=== PATIENT | female | born 1955 | race Two or more races ===

== ENCOUNTER 2023-07-14 11:15 | Inpatient (IN) | payer OTHER ==
[~2023-07-14] VITALS: Ht 154.9 cm; Wt 71.2 kg
[2023-07-14] MEDS ORDERED: CANDESARTAN-HC1 EAC1 PO (14:53)
[2023-07-14] MEDS ORDERED: AMLODIP PO (14:53)
[2023-07-14] MEDS ORDERED: VAZALORE81 MG PO (14:54)
[2023-07-14] MEDS ORDERED: ATORVAST PO (14:54)
[2023-07-15 10:04] LABS: COL EPI 160 SECONDS (82-175)
[2023-07-20] MEDS ORDERED: OPTIMAL D31250 MCG (09:15)
[2023-07-20] MEDS ORDERED: ATORVASTATIN CA20 MG (09:15)
[2023-07-20] MEDS ORDERED: NORVASC2.5 MG (09:15)
[2023-07-20 10:48] LABS: ABG PH 7.332 (7.35-7.45); ABG PO2 165.6 mmHg (80-100); ABG pCO2 48.9 mmHg (35-45); BASE EXCESS -1.1 mmol/l; BICARBONATE 25.4 mmol/l (23-25); SaO2 99.3 %; Tco2 26.9 mmol/l; allen test SATISFACTORY; o2 40 %; puncture site RADIAL LEFT
[2023-07-20 12:08] LABS: HEMATOCRIT 40.5 % (36.0-45.00); MEAN CELL VOLUME 91.6 fL (80.00-100.00); MEAN CORPUSCULAR HEMOGLOBIN 29.5 pg (27.00-32.0); MEAN CORPUSCULAR HGB CONC 32.2 g/dl (32.0-36.0); RED BLOOD COUNT 4.43 M/uL (4.00-6.00); RED CELL DISTRIBUTION WIDTH 14.1 % (11.5-14.5)
[2023-07-20 12:10] LABS: PLATELET COUNT 121 K/uL (150-450)
[2023-07-21 07:20] LABS: ABG PH 7.442 (7.35-7.45); ABG PO2 107.2 mmHg (80-100); ABG pCO2 45.4 mmHg (35-45); BASE EXCESS 5.3 mmol/l; BICARBONATE 30.3 mmol/l (23-25); SaO2 98.4 %; Tco2 31.7 mmol/l
[2023-07-21 07:21] LABS: allen test SATISFACTORY; o2 28 %; puncture site RADIAL LEFT
[2023-07-21 07:29] LABS: HEMATOCRIT 37.5 % (36.0-45.00); MEAN CELL VOLUME 89.9 fL (80.00-100.00); MEAN CORPUSCULAR HEMOGLOBIN 31.1 pg (27.00-32.0); MEAN CORPUSCULAR HGB CONC 34.6 g/dl (32.0-36.0); RED BLOOD COUNT 4.17 M/uL (4.00-6.00); RED CELL DISTRIBUTION WIDTH 14.1 % (11.5-14.5)
[2023-07-21 07:42] LABS: PLATELET COUNT 105 K/uL (150-450)
[2023-07-21 08:04] LABS: ALBUMIN 3.2 gm/dL (3.4-5.0); CALCIUM 8.7 mg/dL (8.5-10.1); CREATININE SERUM 0.6 mg/dL (0.55-1.02); GFR 99.71; MAGNESIUM 2.1 mg/dL (1.8-2.4); PHOSPHOROUS 2.9 mg/dL (2.5-4.9); POTASSIUM 4.33 mEq/L (3.5-5.1)
[2023-07-22 07:40] LABS: HEMOGLOBIN 11.7 g/dL (12.0-15.00); MEAN CELL VOLUME 91.3 fL (80.00-100.00); MEAN CORPUSCULAR HEMOGLOBIN 29.8 pg (27.00-32.0); MEAN CORPUSCULAR HGB CONC 32.6 g/dl (32.0-36.0); RED BLOOD COUNT 3.94 M/uL (4.00-6.00); RED CELL DISTRIBUTION WIDTH 13.7 % (11.5-14.5)
[2023-07-22 08:12] LABS: CALCIUM 8.2 mg/dL (8.5-10.1); CREATININE SERUM 0.54 mg/dL (0.55-1.02); GFR 112.61; PHOSPHOROUS 2.4 mg/dL (2.5-4.9); POTASSIUM 3.72 mEq/L (3.5-5.1)
[2023-07-22 10:42] LABS: PLATELET COUNT 97 K/uL (150-450)
[2023-07-23 09:09] LABS: CALCIUM 8.2 mg/dL (8.5-10.1); CREATININE SERUM 0.47 mg/dL (0.55-1.02); GFR 132.17; MAGNESIUM 1.9 mg/dL (1.8-2.4); POTASSIUM 3.67 mEq/L (3.5-5.1); T4 TOTAL 9.4 UG/DL (4.8-13.9); TSH 0.56 uIU/mL (0.358-3.74)
[2023-07-26 08:10] LABS: HEMATOCRIT 32.3 % (36.0-45.00); HEMOGLOBIN 11.3 g/dL (12.0-15.00); MEAN CELL VOLUME 89.4 fL (80.00-100.00); MEAN CORPUSCULAR HEMOGLOBIN 31.2 pg (27.00-32.0); MEAN CORPUSCULAR HGB CONC 34.9 g/dl (32.0-36.0); RED BLOOD COUNT 3.61 M/uL (4.00-6.00); RED CELL DISTRIBUTION WIDTH 13.8 % (11.5-14.5)
[2023-07-26 08:21] LABS: PLATELET COUNT 121 K/uL (150-450)
[2023-07-26 08:38] LABS: ALBUMIN 2.7 gm/dL (3.4-5.0); BILIRUBIN TOTAL 0.48 mg/dL (0.3-1.2); CALCIUM 8.6 mg/dL (8.5-10.1); CREATININE SERUM 0.53 mg/dL (0.55-1.02); GFR 115.06; POTASSIUM 3.94 mEq/L (3.5-5.1); TOTAL PROTEIN 5.7 gm/dL (6.4-8.2)
== END 2023-07-27 13:21 | disposition home or self-care (01) | DRG 330 ==
LOC: O/R 07-20 05:10 → SURH 07-20 05:10 → SURG 07-20 07:00 → SURH 07-20 10:41 → SURG 07-20 11:15 → SURH 07-27 13:21
PROVIDERS: Internal Medicine; Internal Medicine Geriatric Medicine; ADMIT Colon & Rectal Surgery; ATTEND Colon & Rectal Surgery
PROC: 0DBP4ZZ Excision of Rectum, Percutaneous Endoscopic Approach (ICD-10-PCS; 2023-07-20)
PROC: 0TQB4ZZ Repair Bladder, Percutaneous Endoscopic Approach (ICD-10-PCS; 2023-07-20)
PROC: 0UQG4ZZ Repair Vagina, Percutaneous Endoscopic Approach (ICD-10-PCS; 2023-07-20)
PROC: 0DTN4ZZ Resection of Sigmoid Colon, Percutaneous Endoscopic Approach (ICD-10-PCS; principal; 2023-07-20 07:00)
DX: K57.32 Diverticulitis of large intestine without perforation or abscess without bleeding (principal); K92.1 Melena; N82.3 Fistula of vagina to large intestine; N99.72 Accidental puncture and laceration of a genitourinary system organ or structure during other procedure; N73.6 Female pelvic peritoneal adhesions (postinfective); D69.6 Thrombocytopenia, unspecified; I11.9 Hypertensive heart disease without heart failure

== ENCOUNTER 2023-08-03 21:14 | Inpatient (IN) | payer OTHER ==
[~2023-08-03] VITALS: Ht 154.9 cm; Wt 69.4 kg
[~2023-08-03 21:14] MED LIST: AMLODIP PO; ATORVAST PO; ATORVASTATIN CA20 MG; CANDESARTAN-HC1 EAC1 PO; NORVASC2.5 MG; OPTIMAL D31250 MCG; VAZALORE81 MG PO
--- NOTE | 2023-08-03 21:22 | NUR ---
PACIENTE ALERTA Y ORIENTADA X 3. REFIERE EL AUG 17 FUE OPERADA PARA REMOVER PARTE DEL INTESTINO Y REFIERE TENER EN AREA DE LA CIRUJIA NGUYEN CELLULITIS, REFIERE TENER EL AREA KYUNG, CALIENTE AL TACTO Y SUPURANDO DESDE EL MAGO DE GHADA, REFIERE MUCHO DOLOR Y FIEBRE EL MAGO DE HOY. FUE OPERADA POR DR Malena ALVARADO.
--- NOTE | 2023-08-03 22:21 | NUR ---
SE ORIENTA PTE SOBRE TX A SEGUIR, EL CUAL REFIERE ENTENDER. SE COLECTAN MUESTRAS Y SE CANALIZA PTE UTILIZANDO MEDIDAS ASEPTICAS. SE ADM. MEDICAMENTOS RANDAL ORDEN MEDICA BAJO MEDIDAS ASEPTICAS. SE HACE ENTREGA DE ENVASE PARA MUESTRA DE UA PEND. PTE MANEJADO POR JAN CHAVEZ
[2023-08-03 22:26] LABS: HEMATOCRIT 32.1 % (36.0-45.00); MEAN CELL VOLUME 89.3 fL (80.00-100.00); MEAN CORPUSCULAR HEMOGLOBIN 30.6 pg (27.00-32.0); MEAN CORPUSCULAR HGB CONC 34.3 g/dl (32.0-36.0); PLATELET COUNT 257 K/uL (150-450); RED BLOOD COUNT 3.59 M/uL (4.00-6.00); RED CELL DISTRIBUTION WIDTH 13.1 % (11.5-14.5)
[2023-08-03 22:41] LABS: CALCIUM 8.7 mg/dL (8.5-10.1); CREATININE SERUM 0.59 mg/dL (0.55-1.02); GFR 101.67; POTASSIUM 3.69 mEq/L (3.5-5.1)
[2023-08-03 23:15] LABS: PH,URINE 6.5 (5.0-8.0); URINE APPEARANCE Clear; URINE BILIRRUBIN Negative (NEGATIVE); URINE BLOOD Small; URINE COLOR Yellow; URINE GLUCOSE Negative (NEGATIVE); URINE LEUKOCYTE Negative; URINE NITRATE Negative; URINE PROTEIN Negative (NEGATIVE); URINE UROBILINOGEN 0.2 E.U./dl
[2023-08-03 23:20] LABS: URINE RBC 2.2 uL (0.0-20.8)
[2023-08-04 01:37] LABS: INR 1.02; PARTIAL THROMBOPLASTIN TIME 29.9 SECONDS (22.0-34.0); PROTHROMBIN TIME 10.7 SECONDS (9.0-11.5)
[2023-08-04] MEDS ORDERED: AMIODARONE HCL200 MG (09:53)
[2023-08-05 06:15] LABS: HEMATOCRIT 35.6 % (36.0-45.00); HEMOGLOBIN 11.7 g/dL (12.0-15.00); MEAN CELL VOLUME 90.7 fL (80.00-100.00); MEAN CORPUSCULAR HEMOGLOBIN 29.7 pg (27.00-32.0); MEAN CORPUSCULAR HGB CONC 32.7 g/dl (32.0-36.0); PLATELET COUNT 313 K/uL (150-450); RED BLOOD COUNT 3.93 M/uL (4.00-6.00); RED CELL DISTRIBUTION WIDTH 13.2 % (11.5-14.5)
[2023-08-05 06:41] LABS: ALBUMIN 2.7 gm/dL (3.4-5.0); BILIRUBIN TOTAL 0.59 mg/dL (0.3-1.2); CREATININE SERUM 0.61 mg/dL (0.55-1.02); GFR 97.83; GLOBULINA 3.8 G/DL (2.4-3.5); MAGNESIUM 2.3 mg/dL (1.8-2.4); PHOSPHOROUS 4.5 mg/dL (2.5-4.9); POTASSIUM 4.41 mEq/L (3.5-5.1); TOTAL PROTEIN 6.5 gm/dL (6.4-8.2)
[2023-08-05 07:03] LABS: C-REACTIVE PROTEIN 8.58 MG/DL (0.00-0.29)
[2023-08-07 08:10] LABS: HEMATOCRIT 33.4 % (36.0-45.00); HEMOGLOBIN 11.2 g/dL (12.0-15.00); MEAN CELL VOLUME 90.2 fL (80.00-100.00); MEAN CORPUSCULAR HEMOGLOBIN 30.1 pg (27.00-32.0); MEAN CORPUSCULAR HGB CONC 33.4 g/dl (32.0-36.0); PLATELET COUNT 327 K/uL (150-450); RED CELL DISTRIBUTION WIDTH 13.2 % (11.5-14.5)
[2023-08-07 08:13] LABS: ALBUMIN 2.7 gm/dL (3.4-5.0); BILIRUBIN TOTAL 0.17 mg/dL (0.3-1.2); CALCIUM 8.7 mg/dL (8.5-10.1); CREATININE SERUM 0.75 mg/dL (0.55-1.02); GFR 77.08; GLOBULINA 3.7 G/DL (2.4-3.5); MAGNESIUM 2.1 mg/dL (1.8-2.4); POTASSIUM 4.63 mEq/L (3.5-5.1); TOTAL PROTEIN 6.4 gm/dL (6.4-8.2)
[2023-08-07 08:14] LABS: C-REACTIVE PROTEIN 2.46 MG/DL (0.00-0.29)
[2023-08-11 06:12] LABS: HEMATOCRIT 36.6 % (36.0-45.00); HEMOGLOBIN 12.3 g/dL (12.0-15.00); MEAN CELL VOLUME 90.9 fL (80.00-100.00); MEAN CORPUSCULAR HEMOGLOBIN 30.6 pg (27.00-32.0); MEAN CORPUSCULAR HGB CONC 33.7 g/dl (32.0-36.0); PLATELET COUNT 325 K/uL (150-450); RED BLOOD COUNT 4.03 M/uL (4.00-6.00); RED CELL DISTRIBUTION WIDTH 13.7 % (11.5-14.5)
[2023-08-11 06:47] LABS: BILIRUBIN TOTAL 0.23 mg/dL (0.3-1.2); CALCIUM 9.5 mg/dL (8.5-10.1); CREATININE SERUM 0.69 mg/dL (0.55-1.02); GFR 84.86; GLOBULINA 3.6 G/DL (2.4-3.5); MAGNESIUM 2.1 mg/dL (1.8-2.4); PHOSPHOROUS 3.8 mg/dL (2.5-4.9); POTASSIUM 4.59 mEq/L (3.5-5.1); TOTAL PROTEIN 6.6 gm/dL (6.4-8.2)
[2023-08-11 06:54] LABS: C-REACTIVE PROTEIN 0.44 MG/DL (0.00-0.29)
== END 2023-08-17 15:39 | disposition home or self-care (01) | DRG 863 ==
LOC: ER 21:14 → MEDI 23:58
PROVIDERS: Emergency Medicine; General Practice; Internal Medicine Infectious Disease; ADMIT Internal Medicine; ATTEND Internal Medicine
PROC: BW21ZZZ Computerized Tomography (CT Scan) of Abdomen and Pelvis (ICD-10-PCS; principal; 2023-08-03)
DX: T81.42XA Infection following a procedure, deep incisional surgical site, initial encounter (principal); L03.311 Cellulitis of abdominal wall; L02.211 Cutaneous abscess of abdominal wall; B96.89 Other specified bacterial agents as the cause of diseases classified elsewhere; G47.33 Obstructive sleep apnea (adult) (pediatric); I11.9 Hypertensive heart disease without heart failure; Z20.822 Contact with and (suspected) exposure to COVID-19

== ENCOUNTER 2024-06-09 10:36 | Emergency (ER) | payer OTHER ==
[~2024-06-09] VITALS: Ht 154.9 cm; Wt 73.9 kg
[~2024-06-09 10:36] MED LIST changes: +AMIODARONE HCL200 MG
[2024-06-09] MEDS ORDERED: BARIUM SULFATE 450 ML ORAL.SUSP PO ONE (11:37)
[2024-06-09 11:56] LABS: HEMATOCRIT 41.7 % (36.0-45.00); HEMOGLOBIN 14.3 g/dL (12.0-15.00); MEAN CELL VOLUME 90.3 fL (80.00-100.00); MEAN CORPUSCULAR HGB CONC 34.4 g/dl (32.0-36.0); PLATELET COUNT 131 K/uL (150-450); RED BLOOD COUNT 4.61 M/uL (4.00-6.00); RED CELL DISTRIBUTION WIDTH 13.8 % (11.5-14.5)
[2024-06-09 12:15] LABS: CALCIUM 10.1 mg/dL (8.5-10.1); CREATININE SERUM 0.91 mg/dL (0.55-1.02); GFR 61.66; POTASSIUM 4.09 mEq/L (3.5-5.1)
[2024-06-09 14:43] LABS: URINE APPEARANCE Cloudy; URINE BILIRRUBIN Negative (NEGATIVE); URINE BLOOD Negative; URINE COLOR Yellow; URINE GLUCOSE Negative (NEGATIVE); URINE KETONE Negative (NEGATIVE); URINE LEUKOCYTE Trace; URINE NITRATE Negative; URINE PROTEIN Negative (NEGATIVE)
[2024-06-09 14:44] LABS: URINE BACTERIA 30.2 uL (0.0-1933); URINE EPITHELIAL CELLS 7.1 uL (0.0-38.8); URINE RBC 3.3 uL (0.0-20.8); URINE WBC 11.4 uL (0.0-23.2)
[2024-06-09] MEDS ORDERED: KETOROLAC TROMETHAMINE 60 MG VIAL IM ONE ×2 (17:39→17:45)
== END 2024-06-09 17:45 | disposition home or self-care (01) ==
LOC: ER 10:37
PROVIDERS: Emergency Medicine
DX: R15.9 Full incontinence of feces (principal); K57.30 Diverticulosis of large intestine without perforation or abscess without bleeding; I10 Essential (primary) hypertension; Z88.8 Allergy status to other drugs, medicaments and biological substances
CPT/HCPCS: 36415; 74177; 96372; 99284; J1885; Q9965